=== PATIENT | female | born 1955 | race African-American/Black ===

== ENCOUNTER 2020-05-21 18:50 | Inpatient (IN) | payer OTHER, SELFPAY ==
[~2020-05-21] VITALS: Ht 167.6 cm; Wt 54.9 kg
[2020-05-21 18:53] VITALS: Ht 167.6 cm; Wt 54.9 kg
[2020-05-21 19:39] LABS: microscopic required? YES; urine erythrocyte NEGATIVE (NEGATIVE)
[2020-05-21 19:54] LABS: PLATELET COUNT 578 x10^3mcL (130-400); RED CELL DISTRIBUTION WIDTH 18.7 % (11.5-14.5)
[2020-05-21 20:05] LABS: CALCIUM 9.8 mg/dL (8.5-10.1); CARBON DIOXIDE 24.4 mmol/L (21-32); CHLORIDE SERUM 101 mmol/L (98-107); CREATININE SERUM 1.5 mg/dL (0.6-1.0); GFR1 37 mL/min; GLUCOSE SERUM 163 mg/dL (74-106); POTASSIUM SERUM 4.7 mmol/L (3.5-5.1); SODIUM SERUM 140 mmol/L (136-145)
[2020-05-21 20:07] LABS: ALKALINE PHOSPHATASE 184 U/L (46-116); ALT/SGPT 28 U/L (14-59); AST/SGOT 21 U/L (15-37); BILIRUBIN TOTAL 1.11 mg/dL (0.20-1.00); LACTIC DEHYDROGENASE (LDH) 241 U/L (100-190)
[2020-05-21 20:09] LABS: ALBUMIN 1.6 g/dL (3.4-5.0)
[2020-05-21] MEDS ORDERED: ACIDOPHILUS1 EAC1 PO (20:28)
[2020-05-21] MEDS ORDERED: GOCOVRI68.5 MG PO (20:28)
[2020-05-21] MEDS ORDERED: ATORVASTATIN CA20 M1 PO (20:29)
[2020-05-21] MEDS ORDERED: [UNRECOGNIZED DRUG - OTHER] PO (20:29)
[2020-05-21] MEDS ORDERED: ESCITALOPRAM OX10 MG PO (20:29)
[2020-05-21] MEDS ORDERED: FERG PO (20:30)
[2020-05-21] MEDS ORDERED: NOVOLOG100 U/ML SQ (20:31)
[2020-05-21] MEDS ORDERED: MEGESTROL AC40 MG/ML PO (20:32)
[2020-05-21] MEDS ORDERED: LOPRESSOR50 M1 PO (20:32)
[2020-05-21] MEDS ORDERED: NUEDEXTA1 CAP PO (20:33)
[2020-05-21] MEDS ORDERED: MULTIVITAMIN1 SGL PO (20:33)
[2020-05-21] MEDS ORDERED: VITAMIN C500 M6 PO (20:34)
[2020-05-21] MEDS ORDERED: VALSARTAN40 MG PO (20:34)
[2020-05-21] MEDS ORDERED: PANTOPRAZOLE SO40 M1 PO (20:34)
[2020-05-21 20:35] LABS: BAND NEUTROPHIL 8 % (0-10); BASOPHIL 0 % (0-2); METAMYELOCTE 1 % (0-2); MONOCYTE 2 % (0-7); MYELOCYTE 1 % (0-2); SEGMENTED NEUTROPHILS 72 % (37-75); rbc morphology (normal/abnorm) ABNORMAL (NORMAL)
[2020-05-21] MEDS ORDERED: ZINC SULFATE220 M2 PO (20:35)
[2020-05-21] MEDS ORDERED: ARGINAID POWDE1 EACH PO (20:35)
[2020-05-21 20:36] LABS: PLATELET MORPHOLOGY PLATELETS INCREASED
[2020-05-21 22:22] LABS: CHOLESTEROL/HDL RATIO 4.6; MAGNESIUM 2.2 mg/dL (1.8-2.4); PHOSPHOROUS 5.8 mg/dL (2.5-4.9)
[2020-05-21 22:30] LABS: T3 TOTAL 0.41 ng/mL
[2020-05-21 22:31] LABS: FREE T4 1.44 ng/dL (0.76-1.46); FREE THYROXINE INDEX 2.4 ug/dL (1.4-4.5); T4(THYROXINE) 6.2 ug/dL (4.7-13.3)
[2020-05-22 02:30] VITALS: BP 86/51
== END 2020-05-22 03:41 | disposition expired | DRG 871 ==
LOC: ED 18:50 → IC 22:27
PROVIDERS: Emergency Medicine; ADMIT Internal Medicine; ATTEND Internal Medicine
DX: A41.9 Sepsis, unspecified organism (principal); R65.21 Severe sepsis with septic shock; E43 Unspecified severe protein-calorie malnutrition; N17.0 Acute kidney failure with tubular necrosis; J18.9 Pneumonia, unspecified organism; J96.00 Acute respiratory failure, unspecified whether with hypoxia or hypercapnia; N39.0 Urinary tract infection, site not specified; G81.94 Hemiplegia, unspecified affecting left nondominant side; Z68.1 Body mass index [BMI] 19.9 or less, adult; D68.59 Other primary thrombophilia; E86.0 Dehydration; D69.6 Thrombocytopenia, unspecified; E83.39 Other disorders of phosphorus metabolism; I46.9 Cardiac arrest, cause unspecified; L89.159 Pressure ulcer of sacral region, unspecified stage; E11.9 Type 2 diabetes mellitus without complications; Z79.899 Other long term (current) drug therapy; Z74.01 Bed confinement status
CPT/HCPCS: 36600; 82962; 83880; 84439; 87804; G0378; J2543; J3490; J7030; Q0092; U0003-CS